=== PATIENT | female | born 1980 | race Caucasian/White ===

== ENCOUNTER 2021-06-19 07:12 | Day surgery (SDC) | payer BC ==
[~2021-06-19 07:12] MED LIST: Bupivacaine 0.5% 30 ML SDV ONE
[2021-06-19] MEDS ORDERED: fentaNYL 250 MCG/5 ML SDV ONE (07:15)
[2021-06-19] MEDS ORDERED: Succinylcholine 200 MG/10 ML MDV ONE (07:16)
[2021-06-19] MEDS ORDERED: Neostigmine Methylsulfate 1 MG/ML 5 ML Syringe ONE (07:16)
[2021-06-19] MEDS ORDERED: Glycopyrrolate 0.2 MG/ML 5 ML MDV ONE (07:16)
[2021-06-19] MEDS ORDERED: Rocuronium 50 MG/5 ML Vial ONE (07:16)
[2021-06-19] MEDS ORDERED: Ondansetron 4 MG/2 ML SDV ONE (07:16)
[2021-06-19] MEDS ORDERED: Propofol 200 MG/20 ML SDV ONE (07:16)
[2021-06-19] MEDS ORDERED: Dexamethasone 4 MG/ML SDV ONE (07:16)
[2021-06-19] MEDS ORDERED: Nozin Nasal Sanitizer NASBOTH ONE (07:45)
[2021-06-19] MEDS ORDERED: Lactated Ringers 1,000 ML IV SCH (08:45)
[2021-06-19] MEDS ORDERED: Clindamycin Phosphate 900 MG in Sodium Chloride 0.9% 100 ML IV ONE (08:45)
[2021-06-19] MEDS ORDERED: Morphine 2 MG/ML SYRINGE IVPUSH ONE (10:00)
[2021-06-19] MEDS ORDERED: traMADol 50 MG Tab PO ONE (10:30)
--- NOTE | 2021-06-19 20:03 | OR ---
DATE OF PROCEDURE: 06/19/2021 SURGEON: Jerry Zepeda MD PREOPERATIVE DIAGNOSES: 1. Partial tear peroneus brevis, left ankle. 2. Tenosynovitis of the peroneal tendons, left ankle. POSTOPERATIVE DIAGNOSES: 1. Partial tear peroneus brevis, left ankle. 2. Tenosynovitis of the peroneal tendons, left ankle. PROCEDURE: 1. Decompression and synovectomy peroneal tendons, left ankle. 2. Repair of partial tear peroneus brevis. CONTENT ANALYST: ABE Muñiz ANESTHESIA: General. INDICATIONS: Maida is a 41-year-old female, who has had persistent pain and swelling in the lateral aspect of her left ankle for the past several months. She has exhausted conservative care with activity modification in a Cam walker boot, physical therapy, and anti-inflammatories. She has persistent swelling and pain and MRI consistent with significant tenosynovitis and at least a partial thickness tear. Now presents for evaluation of the tear and repair as necessary. Risks, benefits, and potential complications of the procedure were discussed. DESCRIPTION OF PROCEDURE: After adequate anesthesia was obtained, the patient was placed in the lateral decubitus position and secured with a vee bag positioner. A tourniquet was placed about the upper calf. The left foot and ankle were then prepped and draped in a sterile fashion. The lower leg was exsanguinated and tourniquet inflated to 250 mmHg pressure. A curvilinear incision was made along the posterior aspect of the fibula and curved around the distal end. Dissection carried down through the subcutaneous tissues with care taken to avoid any superficial sensory nerves. The fascia over the peroneal tendons was incised longitudinally. A moderate amount of tenosynovitis was present. This was debrided both peroneus longus and brevis tendons. Tendons were evaluated. A partial thickness tear was present just as the tendon curved around the back of the fibula. This extended for approximately 12 mm in length, but was fairly superficial comprising only approximately 10% of the thickness of the tendon. Peroneus longus tendon was intact. This was traced around the distal end of the fibula with the foot flexed knee reverted. The extent of the tendon distally was evaluated and found to be intact. The only other findings were that the muscle belly of the peroneus longus extended down along the tendon and into the fascia to approximately the level of the ankle joint. Edges of the tear were debrided with a Metzenbaum scissors. The tendon was then repaired and slightly tubularized with a 0 Vicryl suture in a running fashion. It was irrigated. The fascia was then closed with 0 Vicryl in a running fashion taking care not to cause any stenosis against the tendons. The skin was closed with 2-0 Vicryl and a running 3-0 Monocryl. Wound edges were infiltrated with 0.5% Marcaine. Steri-Strips were applied. Light compressive dressing was then placed. The patient tolerated procedure very well. There were no complications and taken from the operating room in stable condition. Jerry Zepeda MD /[id number]
== END 2021-06-19 12:25 | disposition home or self-care (01) ==
LOC: JP.SDS 07:12
PROVIDERS: ATTEND Specialist
DX: S86.312A Strain of muscle(s) and tendon(s) of peroneal muscle group at lower leg level, left leg, initial encounter (principal); M65.872 Other synovitis and tenosynovitis, left ankle and foot; E66.9 Obesity, unspecified; Z88.0 Allergy status to penicillin; Z68.29 Body mass index [BMI] 29.0-29.9, adult
CPT/HCPCS: 27625; 28200; 36415; 80053; 81025; 85027; A9270; J0330; J1100; J2270; J2405; J2704; J2710; J3010; J3490; J7120